=== PATIENT | male | born 1965 | race African-American/Black ===

== ENCOUNTER 2022-01-30 06:42 | Emergency (ER) | payer MEDICAID ==
[~2022-01-30] VITALS: Ht 180.3 cm; Wt 82.0 kg
[2022-01-30] MEDS ORDERED: IBUPROFEN 600MG TABLET PO STA (07:08)
[2022-01-30] MEDS ORDERED: ASPIRIN 81MG TABLET PO ONE (07:15)
[2022-01-30 07:34] LABS: BASOPHILS % 1.1 % (0.0-2.0); EOSINOPHILS % 1.7 % (0.0-5.0); HEMATOCRIT. 38.1 % (42.0-52.0); HEMOGLOBIN. 12.7 g/dL (14.0-18.0); MEAN CORPUSCULAR HEMOGLOBIN 26.6 pg (28.0-32.0); MEAN CORPUSCULAR VOLUME 79.5 fL (80.0-94.0); MEAN PLATELET VOLUME 7.3 fl (7.4-10.4); MONOCYTES % 9.1 % (2.0-8.0); NEUTROPHILS % 49.1 % (40.0-76.0); PLATELET 224 x1000/uL (130-400); RED BLOOD CELL COUNT 4.79 mill/uL (4.7-6.1); RED CELL DISTRIBUTION WIDTH 13.7 % (11.6-14.6)
[2022-01-30 07:40] LABS: CHLORIDE 106 mEq/L (98-107)
[2022-01-30 07:44] LABS: ETHANOL BLOOD < 10 mg/dL
[2022-01-30] MEDS ORDERED: ACETAMINOPHEN 325MG TABLET PO ONE (08:45)
[2022-01-30] MEDS ORDERED: IBUP-2029 MT (08:57)
[2022-01-30 09:15] VITALS: BP 121/75
== END 2022-01-30 09:30 | disposition home or self-care (01) ==
LOC: ER 06:42
DX: K40.90 Unilateral inguinal hernia, without obstruction or gangrene, not specified as recurrent (principal); R07.89 Other chest pain; J44.1 Chronic obstructive pulmonary disease with (acute) exacerbation; I25.2 Old myocardial infarction; I50.9 Heart failure, unspecified; Z88.1 Allergy status to other antibiotic agents; Z86.73 Personal history of transient ischemic attack (TIA), and cerebral infarction without residual deficits
CPT/HCPCS: 36415; 71045; 74176; 80053; 80320; 83880; 84484; 85025; 93005; 99285; G0480